=== PATIENT | female | born 1965 | race African-American/Black ===

== ENCOUNTER 2019-03-21 15:02 | Emergency (ER) | payer SELFPAY ==
[~2019-03-21] VITALS: Ht 162.6 cm; Wt 77.1 kg
[2019-03-21 15:33] LABS: BASO # 0.1 x10^3/uL (0.0-0.2); BASO % 2 % (0-3); EOS # 0.1 x10^3/uL (0.0-0.7); EOS % 1 % (0-3); HEMATOCRIT 37.1 % (36.0-47.0); HEMOGLOBIN 12.1 g/dL (12.0-15.5); LYMPH # 3.5 x10^3/uL (1.0-4.8); LYMPH % 43 % (24-48); MEAN CORPUSCULAR HEMOGLOBIN 28 pg (25-35); MEAN CORPUSCULAR HGB CONC 33 g/dL (31-37); MEAN CORPUSCULAR VOLUME 87 fL (79-100); MONO # 0.4 x10^3/uL (0.0-1.1); MONO % 5 % (0-9); NEUT % 49 % (31-73); PLATELET COUNT 373 x10^3/uL (140-400); RED BLOOD COUNT 4.27 x10^6/uL (3.50-5.40); RED CELL DISTRIBUTION WIDTH 23.4 % (11.5-14.5); WHITE BLOOD COUNT 8.1 x10^3/uL (4.0-11.0)
[2019-03-21 15:52] LABS: CALCIUM 8.8 mg/dL (8.5-10.1); GFR 70.7; POTASSIUM 3.9 mmol/L (3.5-5.1)
[2019-03-21 15:56] LABS: PLT ESTIMATE ADEQUATE (ADEQUATE)
[2019-03-21 15:57] LABS: ALBUMIN 3.5 g/dL (3.4-5.0); ALBUMIN/GLOBULIN RATIO 0.8 (1.0-1.7); ANISOCYTOSIS MOD; MAGNESIUM 1.6 mg/dL (1.8-2.4); POIKILOCYTOSIS SLIGHT; TOTAL BILIRUBIN 0.1 mg/dL (0.2-1.0); TOTAL PROTEIN 7.9 g/dL (6.4-8.2)
--- NOTE | 2019-03-21 16:02 | PHYS DOC ---
Adult General Chief Complaint Chief Complaint: CHEST PAIN HPI HPI Patient is a 53 year old AA female who presents to the emergency department with complaints of upper abdominal discomfort and chest tightness that has been constant for the last 2 weeks. Patient states her upper abdomen feels bloated. She reports that the chest tightness increases when she lies flat at night. Patient has tried taking Tums for relief of the discomfort with no resolution of pain. Currently she rates her pain a 4 out of 10 on the pain scale, the pain is not exacerbated by eating. She reports that her only health history is hypertension of which she takes lisinopril and spirolactone for treatment of. Patient states she forgot to take her medications this morning. She also complains of R forearm soreness, states that a week ago her Right hand was weak and her R arm felt numb, earlier today the left side of her face felt numb and she had sharp pain in her left arm. Pt currently denies facial numbness or left arm pain. ROS Patient denies any fever, cough, shortness of breath, ear pain, dizziness, syncope, or fatigue. She states she has felt nauseated but denies any vomiting, diarrhea, dysuria, increased urinary frequency, or hematuria. Patient states that time the pressure does radiate to her right posterior shoulder. She denies any diaphoresis, swelling of lower extremities, or constipation. Patient states that the tightness in her chest has increased with activity a few times. All other ROS is neg unless otherwise noted in HPI. Review of Systems Review of Systems See Above Current Medications Current Medications Current Medications Medications (Trade) Dose Ordered Sig/Sonya Start Time Stop Time Status Last Admin Dose Admin Aspirin (Yeimy Aspirin) 325 mg 1X ONCE 03/21/19 16:45 03/21/19 16:46 DC 03/21/19 16:47 325 MG Info (CONTRAST GIVEN -- Rx MONITORING) 1 each PRN DAILY PRN 03/21/19 18:15 03/21/19 19:05 DC Iohexol (Omnipaque 300 Mg/ml) 75 ml 1X ONCE 03/21/19 18:30 03/21/19 18:31 DC 03/21/19 18:22 75 ML Multi-Ingredient Mouthwash/Gargle (Gi Cocktail) 20 ml 1X ONCE 03/21/19 16:45 03/21/19 16:46 DC 03/21/19 16:48 20 ML Allergies Allergies Allergies Coded Allergies Type Severity Reaction Last Updated Verified No Known Drug Allergies 03/21/19 No Physical Exam Physical Exam See Above Constitutional: Well developed, well nourished, no acute distress, non-toxic appearance. [] HENT: Normocephalic, atraumatic, bilateral external ears normal, oropharynx moist, no oral exudates, nose normal. [] Eyes: PERRLA, conjunctiva normal, no discharge. [] Neck: Normal range of motion, no stridor. [] Cardiovascular:Heart rate regular rhythm, no murmur [] Lungs & Thorax: Bilateral breath sounds clear to auscultation, chest nontender, no retractions [] Abdomen: Bowel sounds normal, soft, no masses, no pulsatile masses; right upper quadrant, epigastric and left upper quadrant tenderness to palpation, no rebound, no guarding Skin: Warm, dry, no erythema, no rash. [] Back: No CVA tenderness. [] Extremities: No cyanosis, no clubbing, ROM intact, no edema. [] Neurologic: Alert and oriented X 3, no focal deficits noted. [] Psychologic: Affect normal, judgement normal, mood normal. [] Current Patient Data Vital Signs Vital Signs Date Time Temp Pulse Resp B/P (MAP) Pulse Ox O2 Delivery O2 Flow Rate FiO2 03/21/19 18:53 98.5 94 16 148/80 (102) 98 Room Air 98.5 Lab Values Laboratory Tests Test 03/21/19 15:15 White Blood Count 8.1 x10^3/uL (4.0-11.0) Red Blood Count 4.27 x10^6/uL (3.50-5.40) Hemoglobin 12.1 g/dL (12.0-15.5) Hematocrit 37.1 % (36.0-47.0) Mean Corpuscular Volume 87 fL (79-100) Mean Corpuscular Hemoglobin 28 pg (25-35) Mean Corpuscular Hemoglobin Concent 33 g/dL (31-37) Red Cell Distribution Width 23.4 % (11.5-14.5) H Platelet Count 373 x10^3/uL (140-400) Neutrophils (%) (Auto) 49 % (31-73) Lymphocytes (%) (Auto) 43 % (24-48) Monocytes (%) (Auto) 5 % (0-9) Eosinophils (%) (Auto) 1 % (0-3) Basophils (%) (Auto) 2 % (0-3) Neutrophils # (Auto) 4.0 x10^3/uL (1.8-7.7) Lymphocytes # (Auto) 3.5 x10^3/uL (1.0-4.8) Monocytes # (Auto) 0.4 x10^3/uL (0.0-1.1) Eosinophils # (Auto) 0.1 x10^3/uL (0.0-0.7) Basophils # (Auto) 0.1 x10^3/uL (0.0-0.2) Platelet Estimate Adequate (ADEQUATE) Poikilocytosis Slight Anisocytosis Mod Prothrombin Time 12.0 SEC (11.7-14.0) Prothrombin Time INR 0.9 (0.8-1.1) PTT 24 SEC (24-38) Sodium Level 143 mmol/L (136-145) Potassium Level 3.9 mmol/L (3.5-5.1) Chloride Level 105 mmol/L (98-107) Carbon Dioxide Level 27 mmol/L (21-32) Anion Gap 11 (6-14) Blood Urea Nitrogen 12 mg/dL (7-20) Creatinine 1.0 mg/dL (0.6-1.0) Estimated GFR (Cockcroft-Gault) 70.7 BUN/Creatinine Ratio 12 (6-20) Glucose Level 108 mg/dL (70-99) H Calcium Level 8.8 mg/dL (8.5-10.1) Magnesium Level 1.6 mg/dL (1.8-2.4) L Total Bilirubin 0.1 mg/dL (0.2-1.0) L Aspartate Amino Transferase (AST) 17 U/L (15-37) Alanine Aminotransferase (ALT) 20 U/L (14-59) Alkaline Phosphatase 73 U/L (46-116) Troponin I Quantitative < 0.017 ng/mL (0.000-0.055) Total Protein 7.9 g/dL (6.4-8.2) Albumin 3.5 g/dL (3.4-5.0) Albumin/Globulin Ratio 0.8 (1.0-1.7) L Lipase 130 U/L (73-393) Laboratory Tests 03/21/19 15:15 Laboratory Tests 03/21/19 15:15 EKG EKG 1512- Sinus tachycardia rate 107, no STEMI read by Dr. Arthur[] Radiology/Procedures Radiology/Procedures PROCEDURE: CHEST PA & LATERAL CHEST PA LATERAL History: Chest pain, numbness in the right arm and face Comparison: None. Findings: 2 views of the chest are submitted. There is no infiltrate, pneumothorax, or effusion. Pericardial cardiac silhouette is within normal limits in size. Impression: 1. There is no radiographic evidence of acute cardiopulmonary disease.[] PROCEDURE: CT ABD PELV W/ IV CONTRST ONLY Exam: CT abdomen and pelvis with contrast INDICATION: Upper abdominal bloating TECHNIQUE: Sequential axial images through the abdomen and pelvis obtained following the administration of 75 mL of Omnipaque 300 IV contrast. Sagittal and coronal reformatted images were reconstructed from the axial data and reviewed. Comparisons: None FINDINGS: Heart size is normal. No pericardial effusion. Multilobulated nodule in the left lower lobe measuring up to 1.1 cm. No pleural effusion. Liver, spleen, pancreas, gallbladder and adrenals are unremarkable. Kidneys demonstrate symmetric enhancement. No perinephric inflammation or hydronephrosis. No renal or ureteral calculi are identified. Bladder is distended and appears thin-walled. Fibroid uterus is noted. Large and small bowel are unremarkable. No obstruction. No free intra-abdominal air or fluid. The appendix is normal. Abdominal aorta has a normal course and caliber. Abdominal vasculature is patent. No enlarged intra-abdominal lymph nodes are identified. No suspicious osseous lesions or acute fractures. IMPRESSION: 1. No acute process identified within the abdomen or pelvis. 2. Multilobulated nodule in the left lower lobe measuring 1.1 cm. Dedicated evaluation with nonemergent chest CT is recommended. 3. Apparent fibroid appearance of the uterus however not well assessed on CT. If of clinical concern this can be better evaluated with ultrasound on nonemergent pelvic MRI. Course & Med Decision Making Course & Med Decision Making Pertinent Labs and Imaging studies reviewed. (See chart for details) dx: GERD, paresthesia and pain of bilateral upper extremities, CBC unremarkable, Pt/INR WNL, CMP unremarkable, troponin <0.017 EKG negative for acute findings or STEMI CT abd.pel no acute process, 1.1 cm left lower lobe nodule of lung, CXR unremarkable Pt was given a GI cocktail in the ER, she reported decreased pain and feeling better after medication. Pt was encouraged to follow up with PCP for reevaluation this week and for further evaluation of pulmonary nodule. Patient verbalized an understanding of home care, medications, follow-up, and return to ED instructions and was in agreement with the plan of care. Dragon Disclaimer Dragon Disclaimer This electronic medical record was generated, in whole or in part, using a voice recognition dictation system. Departure Departure Impression: Primary Impression: GERD (gastroesophageal reflux disease) Additional Impressions: Paresthesia and pain of both upper extremities Nodule of lower lobe of left lung Disposition: HOME, SELF-CARE Condition: STABLE Referrals: FIGUEROA MACKEY PA-C (PCP) Patient Instructions: Diet for Gastroesophageal Reflux Disease, Adult, [id number], Gastroesophageal Reflux Disease, Adult, [id number], Paresthesia, [id number] Additional Instructions: Fill the prescription and use as directed. Follow the diet instructions provided. Follow up with your primary care doctor for further evaluation of paresthesias and incidental finding of lung nodule. Return to the ER if symptoms worsen. Scripts Famotidine (FAMOTIDINE) 20 Mg Tablet 20 MG PO BID for 14 Days, #28 TAB 0 Refills Prov: ROBERTH BAY APRN 03/21/19 NIHSS Stroke Scale NIH Stroke Scale: NIH Stroke Scale Response (Comments) Value Level of Consciousness: 0 Alert/Responsive 0 LOC Questions: 0 Answers both correctly 0 LOC Commands: 0 Performs both tasks 0 Best Gaze: 0 Normal 0 Visual: 0 No visual loss 0 Facial Palsy: 0 Normal, symmetrical 0 Motor - Left Arm 0 No drift 0 Motor - Right Arm 0 No drift 0 Motor - Left Leg 0 No drift 0 Motor: Right Leg 0 No drift 0 Limb Ataxia: 0 Absent 0 Sensory: 0 No loss 0 Best Language: 0 Normal 0 Dysathria: 0 Normal 0 Extinction and Inattention: 0 Normal 0 Total 0 Problem Qualifiers Primary Impression: GERD (gastroesophageal reflux disease) Esophagitis presence: esophagitis presence not specified Qualified Codes: K21.9 - Gastro-esophageal reflux disease without esophagitis ROBERTH BAY APRN Mar 21, 2019 16:02
--- NOTE | 2019-03-21 16:03 | RAD ---
CHEST PA LATERAL History: Chest pain, numbness in the right arm and face Comparison: None. Findings: 2 views of the chest are submitted. There is no infiltrate, pneumothorax, or effusion. Pericardial cardiac silhouette is within normal limits in size. Impression: 1. There is no radiographic evidence of acute cardiopulmonary disease. Electronically signed by: Yasir Wen MD (03/21/2019 4:00 PM) [id number]
--- NOTE | 2019-03-21 16:10 | EKG ---
[facility] [address] [place] [address] Test Date: 2019-03-21 Test Time: 15:12:14 Pat Name: JESSICA MOSHER Department: Room: Gender: F Braddisher: : 1965 Requested By: ROBERTH BAY Order Number: [id number] Reading MD: Measurements Intervals [place] Rate: 107 P: 45 HI: 128 QRS: 29 QRSD: 80 T: 18 QT: 324 QTc: 438 Interpretive Statements SINUS TACHYCARDIA QRS(T) CONTOUR ABNORMALITY CONSIDER ANTEROSEPTAL MYOCARDIAL DAMAGE POSSIBLY ABNORMAL ECG RI6.01 No previous ECG available for comparison
[2019-03-21] MEDS ORDERED: ASPIRIN 325 MG TABLET PO ONE (16:45)
[2019-03-21] MEDS ORDERED: LIDO:MAALOX 1:1 20 ML SINGLE DOSE. SWSW ONE (16:45)
[2019-03-21] MEDS ORDERED: CONTRAST GIVEN. MC PRN (18:15)
[2019-03-21] MEDS ORDERED: IOHEXOL 300 MG/ML 100ML VIAL. IV ONE (18:30)
--- NOTE | 2019-03-21 18:46 | RAD ---
Exam: CT abdomen and pelvis with contrast INDICATION: Upper abdominal bloating TECHNIQUE: Sequential axial images through the abdomen and pelvis obtained following the administration of 75 mL of Omnipaque 300 IV contrast. Sagittal and coronal reformatted images were reconstructed from the axial data and reviewed. Comparisons: None FINDINGS: Heart size is normal. No pericardial effusion. Multilobulated nodule in the left lower lobe measuring up to 1.1 cm. No pleural effusion. Liver, spleen, pancreas, gallbladder and adrenals are unremarkable. Kidneys demonstrate symmetric enhancement. No perinephric inflammation or hydronephrosis. No renal or ureteral calculi are identified. Bladder is distended and appears thin-walled. Fibroid uterus is noted. Large and small bowel are unremarkable. No obstruction. No free intra-abdominal air or fluid. The appendix is normal. Abdominal aorta has a normal course and caliber. Abdominal vasculature is patent. No enlarged intra-abdominal lymph nodes are identified. No suspicious osseous lesions or acute fractures. IMPRESSION: 1. No acute process identified within the abdomen or pelvis. 2. Multilobulated nodule in the left lower lobe measuring 1.1 cm. Dedicated evaluation with nonemergent chest CT is recommended. 3. Apparent fibroid appearance of the uterus however not well assessed on CT. If of clinical concern this can be better evaluated with ultrasound on nonemergent pelvic MRI. Exposure: One or more of the following in the visualized dose reduction techniques were utilized for this examination: 1. Automated exposure control 2. Adjustment of the MA and/or KV according to patient size 3. Use of iterative of reconstructive technique Electronically signed by: Julien Dyer MD (03/21/2019 6:44 PM) [facility]
[2019-03-21 18:53] VITALS: BP 148/80
[2019-03-21] MEDS ORDERED: FAMO20TA5 PO (18:54)
== END 2019-03-21 19:05 | disposition home or self-care (01) ==
LOC: ER 15:02
DX: K21.9 Gastro-esophageal reflux disease without esophagitis (principal); R07.89 Other chest pain; R20.0 Anesthesia of skin
CPT/HCPCS: 36415; 71046; 74177; 80053; 83690; 83735; 84484; 85025; 85610; 85730; 93005; 99285; Q9967

== ENCOUNTER 2021-01-06 23:39 | Emergency (ER) | payer SELFPAY ==
[~2021-01-06] VITALS: Ht 157.5 cm; Wt 76.4 kg
[~2021-01-06 23:39] MED LIST: FAMO20TA5 PO
--- NOTE | 2021-01-07 00:15 | PHYS DOC ---
Past Medical History Past Medical History: Hypertension Past Surgical History: , Other Additional Past Surgical Histo: BUNONIONS REMOVED Smoking Status: Never Smoker Alcohol Use: Occasionally Drug Use: None General Adult EDM: Chief Complaint: FLANK PAIN HPI: HPI: Patient is a 55 year old female past medical history hypertension presents with a chief complaint of right flank and back pain. Patient states pain has been ongoing f on and off for the last several weeks. Patient states pain returned yesterday and became intense tonight. Patient states she has nausea but has not vomited. Patient denies any associated urinary symptoms. Patient denies any in jury she has no history of kidney stones. Review of Systems: Review of Systems: Review of systems: Constitutional symptoms- No fever, no chills. Eyes- No Discharge, No Visual Loss Respiratory symptoms- No shortness of breath, No wheezing, No Dyspnea on Exertion Cardiovascular Systems; No chest pain, No Palpitations, No syncope Gastrointestinal symptoms: NO abdominal pain, positive nausea, no vomiting or diarrhea. Genitourinary symptoms: No dysuria. Musculoskeletal symptoms: Positive back pain NEUROLOGICAL Symptoms: No headache, no generalized weakness; No focal Weakness Heart Score: C/O Chest Pain: N/A Risk Factors: Risk Factors: DM, Current or recent (<one month) smoker, HTN, HLP, family history of CAD, obesity. Risk Scores: Score 0 - 3: 2.5% MACE over next 6 weeks - Discharge Home Score 4 - 6: 20.3% MACE over next 6 weeks - Admit for Clinical Observation Score 7 - 10: 72.7% MACE over next 6 weeks - Early Invasive Strategies Allergies: Allergies: Allergies Coded Allergies Type Severity Reaction Last Updated Verified No Known Drug Allergies 03/21/19 No Physical Exam: PE: Constitutional: Well developed, well nourished, no acute distress, non-toxic appearance. [] HENT: Normocephalic, atraumatic, bilateral external ears normal, oropharynx moist, no oral exudates, nose normal. [] Eyes: PERRLA, EOMI, conjunctiva normal, no discharge. [] Neck: Normal range of motion, no tenderness, supple, no stridor. [] Cardiovascular:Heart rate regular rhythm, no murmur [] Lungs & Thorax: Bilateral breath sounds clear to auscultation [] Abdomen: Bowel sounds normal, soft, no tenderness, no masses, no pulsatile masses. [] Skin: Warm, dry, no erythema, no rash. [] Back: No tenderness, no CVA tenderness. [] Extremities: No tenderness, no cyanosis, no clubbing, ROM intact, no edema. [] Neurologic: Alert and oriented X 3, normal motor function, normal sensory function, no focal deficits noted. [] Psychologic: Affect normal, judgement normal, mood normal. [] Current Patient Data: Labs: Laboratory Tests Test 01/06/21 23:58 POC Urine HCG, Qualitative Hcg negative (Negative) Vital Signs: Vital Signs Date Time Temp Pulse Resp B/P (MAP) Pulse Ox O2 Delivery O2 Flow Rate FiO2 01/06/21 23:45 98.7 92 20 151/66 (94) 99 Room Air 98.7 EKG: EKG: [] Radiology/Procedures: Radiology/Procedures: [] Impression: FINDINGS: Sub-4 mm left lung base nodule. Abdominal aorta is not aneurysmal. No intrahepatic bile duct dilation. Gallbladder is contracted. No peripancreatic fluid collection. Spleen unremarkable. No hydronephrosis. Lobulated appearance of the right kidney. Urinary bladder is decompressed with mild indistinctness of adjacent fat. Uterus is prominent in size. Proximal appendix is distended with intraluminal content but the appendix tapers distally without adjacent inflammatory changes. Similar appearance on prior. No dilated loops of bowel to suggest obstruction. Degenerative changes of the spine. Multilevel central canal and neural foraminal stenosis. IMPRESSION: * No hydronephrosis. * No evidence of bowel obstruction. * Enlarged uterus with lobulated contour. Could be from causes such as fibroid. Course & Med Decision Making: Course & Med Decision Making Pertinent Labs and Imaging studies reviewed. (See chart for details) []Treated with toradol. pain improved. Discussed CT with patient. Home treatment otc tylenol and motrin. Rx ultram and flexeril. Dragon Disclaimer: Dragon Disclaimer: This electronic medical record was generated, in whole or in part, using a voice recognition dictation system. Departure Departure Impression: Primary Impression: Flank pain Additional Impression: Back pain Disposition: HOME / SELF CARE / HOMELESS Condition: STABLE Patient Instructions: Back Pain, Adult, Flank Pain Scripts Cyclobenzaprine Hcl (CYCLOBENZAPRINE HCL) 10 Mg Tablet 1 TAB PO QHS, #30 TAB Prov: GONSALO HEREDIA DO 01/07/21 Tramadol Hcl (ULTRAM) 50 Mg Tablet 1 TAB PO PRN Q6HRS PRN for pain MDD 4 Tablet(s) for 7 Days, #28 TAB 0 Refills Prov: GONSALO HEREDIA DO 01/07/21 GONSALO HEREDIA DO January 07, 2021 00:15
--- NOTE | 2021-01-07 00:40 | RAD ---
INDICATION: Reason: flank pain / Spl. Instructions: / History: . COMPARISON: February 2019 TECHNIQUE: Axial CT images obtained through the abdomen and pelvis without contrast. One or more of the following individualized dose reduction techniques were utilized for this examinat ion: 1. Automated exposure control; 2. Adjustment of the mA and/or kV according to patient size; 3 . Use of iterative reconstruction technique. FINDINGS: Sub-4 mm left lung base nodule. Abdominal aorta is not aneurysmal. No intrahepatic bile duct dilation. Gallbladder is contracted. No peripancreatic fluid collection. Spleen unremarkable. No hydronephrosis. Lobulated appearance of the right kidney. Urinary bladder is decompressed with mild indistinctness of adjacent fat. Uterus is prominent in size. Proximal appendix is distended with intraluminal content but the appendix tapers distally without adj acent inflammatory changes. Similar appearance on prior. No dilated loops of bowel to suggest obstruction. Degenerative changes of the spine. Multilevel central canal and neural foraminal stenosis. IMPRESSION: * No hydronephrosis. * No evidence of bowel obstruction. * Enlarged uterus with lobulated contour. Could be from causes such as fibroid. Electronically signed by: Kennedy Jimenez MD (01/07/2021 12:37 AM) [id number]
[2021-01-07 00:41] LABS: BILIRUBIN,URINE NEGATIVE (NEG); CLARITY,URINE CLEAR; COLOR,URINE YELLOW; NITRITE,URINE NEGATIVE (NEG); PH,URINE 5.5 (<5.0-8.0); PROTEIN,URINE NEGATIVE (NEG-TRACE); UROBILINOGEN,URINE 0.2 mg/dL (0.2 mg/dL)
[2021-01-07] MEDS ORDERED: TRAM-48 PO (00:46)
[2021-01-07] MEDS ORDERED: CYCL10TA2 PO (00:46)
[2021-01-07 00:52] LABS: BACTERIA,URINE 0 /HPF (0-FEW); RBC,URINE 20-40 /HPF (0-2)
[2021-01-07 01:50] VITALS: BP 127/70
== END 2021-01-07 01:55 | disposition home or self-care (01) ==
LOC: ER 23:39
DX: R10.9 Unspecified abdominal pain (principal); M54.9 Dorsalgia, unspecified; I10 Essential (primary) hypertension; Z98.890 Other specified postprocedural states
CPT/HCPCS: 74176; 81001; 81025; 99285-25